=== PATIENT | female | born 1940 | race Caucasian/White ===

== ENCOUNTER 2017-01-28 06:01 | Day surgery (SDC) | payer MEDICARE, OTHER ==
[2017-01-26 11:05] LABS: HEMATOCRIT 38.5 % (36.0-48.0); HEMOGLOBIN 12.7 g/dL (12.0-16.0)
[2017-01-26 11:23] LABS: BUN (BLOOD UREA NITROGEN) 19 MG/DL (6-23); CALCIUM, SERUM 9.2 MG/DL (8.5-10.4); CHLORIDE, SERUM 111 MMOL/L (96-112); CO2 (CARBON DIOXIDE) 26 MMOL/L (24-34); CREATININE 1.17 MG/DL (0.55-1.02); GFR AFRICAN AMERICAN 52 ML/MIN (>=60); GFR NON AFRICAN AMERICAN 45 ML/MIN (>=60); GLUCOSE, SERUM 98 MG/DL (60-99); SODIUM, SERUM 142 MMOL/L (135-148)
--- NOTE | ~2017-01-28 | OP ---
Record Of Operation [facility] [address] [place]. [address] NAME: WESLY HERNADEZ : 38 STATUS : [facility]#: [id number] AGE: 76 ADM/REG DATE : 01/28/17 MR#: [id number] REPORT SERV DATE: 02/07/17 DICTATED BY: CHACORTA HOYOS JR. DATE: 02/07/17 REPORT STATUS : Draft TRANSCRIBED BY: PATRICE DATE: 02/07/17 DATE OF PROCEDURE: PREOPERATIVE DIAGNOSIS: Suture fixation of the intraocular lens. POSTOPERATIVE DIAGNOSIS: Exam under anesthesia. ANESTHESIA: Local MAC. 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 The patient was seen in the office with decreased vision hand motion. Options were discussed with the patient including, but not limited to, observation. Risks and benefits were discussed including not limited to, bleeding, blindness, infection, reoperation, retinal detachment, loss of the eye. The patient voiced understanding and desired to have the procedure performed. DETAILS: The patient was identified in the holding area. The eye to operate on was identified and marked. Retrobulbar block of 2% lidocaine, 0.75% Marcaine was administered in usual fashion. A Van Lint type lid block was administered as well. The patient was then taken to the operating room, where the right eye was prepped and draped in usual fashion. Tegaderm strips were used to keep the lashes out of the operative field. Wire speculum was inserted into the eye. Next, once it was positioned under the scope, it was determine that the intraocular lens was not able to be visualized in the anterior segment. There was no haptics nor optic of the lens visible. 0.12s were used to grasp the eye and perform supraduction, infraduction, adduction, and abduction with no view of the lens at any of these areas of movement. At this point, it was elected to remove the speculum and remove the drape. The eye was pressure patched. A shield was placed. She was returned to holding area in good condition. SPECIMENS: None. COMPLICATIONS: None. ESTIMATED BLOOD LOSS: None. DAVID/PATRICE Chacorta Hoyos M.D. / [id number] CC: Chacorta Hoyos M.D. Record Of Operation [address] [place]. [address] NAME: WESLY HERNADEZ : 38 STATUS : [facility] PAT#: [id number] AGE: 76 ADM/REG DATE : 01/28/17 MR#: [id number] REPORT SERV DATE: 02/07/17 DICTATED BY: CHACORTA HOYOS JR. DATE: 02/07/17 REPORT STATUS : Draft TRANSCRIBED BY: MODL DATE: 02/07/17 Sonia Cagle
[~2017-01-28 06:01] MED LIST: IBU-200200 MG PO; PRINZIDE1 TAB PO; ZESTORETIC1 TAB PO
== END 2017-01-28 10:07 | disposition home or self-care (01) ==
LOC: SDC 06:01
PROVIDERS: Ophthalmology
PROC: 08W0XJZ Revision of Synthetic Substitute in Right Eye, External Approach (ICD-10-PCS; principal; 2017-01-28 07:45)
DX: T85.22XA Displacement of intraocular lens, initial encounter (principal); I10 Essential (primary) hypertension; Z79.899 Other long term (current) drug therapy
CPT/HCPCS: 80048; 85014; 85018; 93005; J2150; J2405